=== PATIENT | male | born 1945 | race Caucasian/White ===

== ENCOUNTER 2017-02-10 13:52 | Inpatient (IN) | payer OTHER, MEDICARE ==
[2017-02-10] VITALS (8 sets, daily range): BP systolic 158–161; BP diastolic 86; PULSE 80–94; RESP 16–18; TEMP 97.9–98.2; O2SAT 92–93
[~2017-02-10 13:52] MED LIST: ADVAI100I PO; ATEN1TAB74 PO; ECASA PO; LEVO125T3 PO; PROT40TA PO; VENTAER INH
[2017-02-10] MEDS ORDERED: DILT-48 PO (16:34)
[2017-02-10] MEDS ORDERED: LEVO100T5 PO (16:46)
[2017-02-10] MEDS ORDERED: LISI10TA3 PO (16:46)
[2017-02-10] MEDS ORDERED: MONT10TA4 PO (16:46)
[2017-02-10] MEDS ORDERED: LEVA1.257 NEB (16:46)
[2017-02-10] MEDS ORDERED: [UNRECOGNIZED DRUG - CODE] (16:49)
[2017-02-10] MEDS ORDERED: CEFT1INJ IM (16:50)
[2017-02-10] MEDS ORDERED: ENOXAPARIN SODIUM 100 MG/ML SYRINGE SQ ONE (20:00)
[2017-02-10] MEDS: RESP: ALBUTEROL 2.5 MG/3 ML NEB (SCH) INH (20:00)
[2017-02-10] MEDS: MONTELUKAST SODIUM 10 MG TAB PO SCH (20:25)
[2017-02-10 20:32] LABS: AUTOMATED NEUTROPHIL # 13.1 TH/MM3 (1.8-7.7); HEMATOCRIT 43.3 % (39.0-51.0); HEMO FLAGS AUTO DIFF; LYMPH % 5.4 % (9.0-44.0); LYMPHOCYTE # 0.8 TH/MM3 (1.0-4.8); MEAN CELL VOLUME 103.9 FL (80.0-100.0); MEAN CORPUSCULAR HEMOGLOBIN 35.9 PG (27.0-34.0); MEAN CORPUSCULAR HGB CONC 34.6 % (32.0-36.0); MONO % 8.7 % (0.0-8.0); NEUT % 85.9 % (16.0-70.0); PLATELET COUNT 265 TH/MM3 (150-450); RED BLOOD COUNT 4.17 MIL/MM3 (4.50-5.90); RED CELL DISTRIBUTION WIDTH 15.7 % (11.6-17.2); WHITE BLOOD COUNT 15.3 TH/MM3 (4.0-11.0)
[2017-02-10 20:48] LABS: APTT (PATIENT) 25.4 SEC (24.3-30.1); PROTHROMBIN TIME - PATIENT 10.7 SEC (9.8-11.6)
[2017-02-10 20:53] LABS: BICARBONATE 24.3 MEQ/L (21.0-32.0); POTASSIUM 4.1 MEQ/L (3.5-5.1)
[2017-02-10 21:16] LABS: PLATELET ESTIMATE SMEAR NORMAL (NORMAL); PLATELET MORPHOLOGY NORMAL (NORMAL); SCAN/DIFF AUTO DIFF CONFIRMED
[2017-02-10] MEDS ORDERED: TEMAZEPAM 15 MG CAP PO PRN (22:00)
--- NOTE | 2017-02-10 22:36 | MB ---
cc: JAKUB ZEE M.D. DATE OF CONSULTATION: 02/10/2017 REASON FOR CONSULTATION: Atrial fibrillation, unable to control with medication. Multiple emergency room visits. HISTORY OF PRESENT ILLNESS: Mr. Woody is a 71 year-old gentleman with history of atrial fibrillation, previous ablation around six years ago, history of high blood pressure. The gentleman was admitted at [facility] due to atrial fibrillation with fast ventricular response. Multiple medications were given. Heart rate was very difficult to control. He came to the emergency room. He was transfer by Dr. Acosta for evaluation for ablation. The chart was reviewed. The patient was evaluated. I did have a very long conversation with the patient and his . ALLERGIES CODEINE. TERAZOSIN SOCIAL HISTORY: Denies smoking and drinking. FAMILY HISTORY Noncontributory to his current medical condition. MEDICATIONS Lisinopril 10 mg a day 1. Albuterol inhaler. 2. Cardizem CD 240 mg a day 3. Ceftriaxone 4. Levoxyl 100 mcg twice a day. REVIEW OF SYSTEMS The gentleman refers no chest pain, some tiredness and palpitations but no fever. PHYSICAL EXAMINATION: The patient is alert, fully oriented. VITAL SIGNS: Blood pressure 158/86, pulse 83, respiratory rate 18. LUNGS: Ventilated. There is some bilateral wheezing. CARDIOVASCULAR: S1-S2. Regular, no gallop. ABDOMEN: Soft, obese, no masses. EXTREMITIES: No edema. Electrocardiogram from the other hospital indicates sinus rhythm. Telemetry also showed sinus rhythm. ASSESSMENT AND RECOMMENDATION: Mr. Woody has atrial fibrillation. Apparently this is not the first ER visit. Heart rate is very difficult to control. We converted him to sinus rhythm on multiple occasions and back to atrial fibrillation with fast ventricular response. He is on Lovenox. He was transferred by Dr. Kinsey for ablation. I had a long conversation with the patient and his . Apparently there is confusion. The gentleman has some pause when breaking into sinus rhythm. Those are compensatory pauses. There is no need for pacemaker. The patient believes that he was going to have an ablation and a pacemaker. It was very difficult to explain to the patient if the arrhythmia is controlled, there is most likely no need for pacemaker. He has a loop recorder. He is going to be monitored through the loop recorder. Also the gentleman has some wheezing. There was a question augustine of pneumonia. I explained to him that he needs to be evaluated by pulmonary. If there is possible pneumonia, then ablation will not be performed. The gentleman was not happy about that news. I discussed again the case over the phone with Dr. Kinsey. At this point pulmonary consult. If the patient is clear, ablation will be performed tomorrow. If not, the gentleman has to wait until he is cleared by pulmonary, then the case will be scheduled. Jakub Zee MD /MADYSON /7:17 PM /10:11 PM
[2017-02-11] VITALS (24 sets, daily range): BP systolic 130–168; BP diastolic 68–96; PULSE 66–89; RESP 16–20; TEMP 97.5–98.2; O2SAT 93–96
[2017-02-11] MEDS: LEVOTHYROXINE SODIUM 100 MCG TAB PO SCH (05:39)
[2017-02-11] MEDS: RESP: ALBUTEROL 2.5 MG/3 ML NEB (SCH) INH ×4 (08:00→19:32)
[2017-02-11] MEDS: DILTIAZEM-CD 240 MG CAP ER PO SCH (09:07)
[2017-02-11] MEDS: LISINOPRIL 10 MG TAB PO SCH (09:07)
--- NOTE | 2017-02-11 09:12 | MB ---
cc: SAMANTHA SINGH M.D. DATE OF CONSULTATION 02/11/2017 REASON FOR CONSULTATION COPD, abnormal chest x-ray. HISTORY OF PRESENT ILLNESS Mr. Woody is a 71-year-old male who has known history of COPD, had history of atrial fibrillation controlled over the years he as well has history of lung cancer status post right lower lobectomy in the past. He uses albuterol on as-needed basis at home. Admitted with V-fib and RVR to [facility] in [place], transferred here for further evaluation. Presently in sinus rhythm. He does have exertional dyspnea after walking a few steps. He denies history of fevers, chills, hemoptysis, TB or previous industrial exposure. PAST MEDICAL HISTORY 1. Atrial fibrillation. 2. Hypertension. 3. COPD. 4. Status post right lower lobe lobectomy and ablation for atrial fibrillation. 5. Hypothyroidism. PRESENT MEDICATIONS 1. Cardizem . 2. Levoxyl. 3. Lisinopril. 4. Ceftriaxone for possible underlying pneumonia. FAMILY HISTORY Noncontributory. REVIEW OF SYSTEMS A 12-point review of systems as per HPI and Past History, otherwise negative. PHYSICAL EXAMINATION GENERAL: Patient is alert, appears in no distress at present. VITAL SIGNS: Temperature 98, pulse 80, respirations 18, blood pressure 148/82. HEENT: Exam unremarkable. Eyes without icterus. NECK: Without adenopathy or thyroid enlargement. Central trachea. CHEST: Without dullness to percussion. A few scattered rhonchi on auscultation. CARDIAC EXAM: PMI distant. S1, S2 audible. No murmur, no rub. ABDOMEN: Lax. Bowel sounds audible. EXTREMITIES: No clubbing, cyanosis or edema. SKIN: Normal. LYMPHATICS: No lymphadenopathy. LABORATORY DATA White count 15,000, hemoglobin 15, hematocrit 43. Sodium 138, potassium 4.1, BUN 25, creatinine 1.1. IMPRESSION 1. COPD with exertional dyspnea. 2. Atrial fibrillation. 3. Hypertension. PLAN The patient has significant exertional dyspnea. I do not have his recent chest x-ray. The chest x-ray from 2013 was with evidence of previous surgery; no acute infiltrates identified. We will obtain his present x-rays down in [facility]. Meanwhile obtain a follow-up chest x-ray at present as well as pulmonary function and baseline arterial blood gas. Once reviewed, further evaluation will be undertaken if needed and future plans for therapy is being evaluated for his atrial fibrillation by Dr. Bustamante at present. I do thank you for asking me to partake in Mr. Woody's care. Sincerely, Samantha Singh MD WWW/JOSE MIGUEL /8:21 AM /8:54 AM
--- NOTE | 2017-02-11 10:49 | HHI.PR ---
Subjective Remarks Feeling . Am I going to have a pacer? Objective Vital Signs Date Time Temp Pulse Resp B/P Pulse Ox O2 Delivery O2 Flow Rate FiO2 02/11/17 07:45 97.5 78 16 162/93 95 02/11/17 07:45 88 02/11/17 05:46 98.1 89 16 168/82 94 02/11/17 03:00 71 02/11/17 02:00 70 02/11/17 01:00 66 02/11/17 00:23 98.1 79 16 140/82 95 02/11/17 00:00 72 02/10/17 23:00 80 02/10/17 22:00 92 02/10/17 21:00 82 02/10/17 20:38 92 21 02/10/17 20:35 97.9 91 16 161/86 93 02/10/17 20:00 94 02/10/17 19:00 88 02/10/17 15:00 98.2 83 18 158/86 93 I/O 02/10/17 02/10/17 02/10/17 02/11/17 02/11/17 02/11/17 07:00 15:00 23:00 07:00 15:00 23:00 Intake Total 480 ml 240 ml Output Total 60 ml Balance 480 ml 180 ml Intake Oral 480 ml 240 ml Output Urine Total 60 ml # Voids 2 2 # Bowel Movements 1 Result Diagram: 02/10/17200802/10/172008 Imaging alert, fully oriented Lungs: ventilated Heart: S1, S2 regular Abdomen: soft, no mass Ext: No edema Current Medications Medications (Trade) Dose Ordered Sig/Nargis Route Start Time Stop Time Status Last Admin (Cardizem Cd) 240 mg DAILY PO 02/11/17 09:00 02/11/17 09:07 (Singulair) 10 mg HS PO 02/10/17 21:00 02/10/17 20:25 (Prinivil) 10 mg DAILY PO 02/11/17 09:00 02/11/17 09:07 (Synthroid) 100 mcg DAILY@07 PO 02/11/17 07:00 02/11/17 05:39 (Rocephin Inj) 1,000 mg Q24H IM 02/11/17 17:00 (Restoril) 15 mg HS PRN PO 02/10/17 22:00 02/15/17 21:59 Assessment and Plan Problem List: (1) Atrial fibrillation Status: Acute Plan: In sinus rhythm. HR control I had a long conversation with the patient and his this morning again. I did explain to them I need pulmonary clearance before schedule the ablation. The gentleman told me his MD at [facility] told him he needs a pacemaker. If he is going to have the ablation, he has to have the pacer also. We had that conversation yesterday. I did explain yto him there is no indication for pacing. 2-3 sec pauses when converted into sinus rhythm is compensatory and the node is resetting. I draw a picture to explain that to him. Patient not happy about my explanation and wants a pacer. HR is control. There is no emergency. I advise him to look for a second opinion. Dr Acosta will decide if he wants to insert a pacer for him. I do not feel comfortable implanting one. Patient prefers to see Dr Acosta for the pacer and will contact me if necessary Ok to after pulmonary evaluation. I will be available on a PRN basis (2) Bradycardia Status: Acute Plan: No daisy recorded (3) Pneumonia Status: Acute Plan: On IV antibiotics. Will be evaluated by pulmonary Radha Bustamante MD Feb 11, 2017 10:49
--- NOTE | 2017-02-11 13:39 | RADRPT ---
EXAM DATE/TIME: 02/11/2017 13:06 [place] COMPARISON: No previous studies available for comparison. INDICATIONS : Pneumonia. MEDICAL HISTORY : Hypercholesterolemia. Hypothyroidism. Gastroesophageal reflux disease. Lung cancer. SURGICAL HISTORY : Cholecystectomy. Right lower lobectomy. ENCOUNTER: Initial ACUITY: 2 days PAIN SCORE: 2/10 LOCATION: Bilateral chest FINDINGS: PA and lateral views of the chest demonstrate the lungs to be symmetrically aerated without evidence of mass, infiltrate or effusion. The cardiomediastinal contours are unremarkable. The right hemidiap hragm is slightly elevated. Osseous structures are intact. CONCLUSION: Normal examination. Surgical clips overlie the right hilum. Vern Stuart MD on February 11, 2017 at 13:36 Board Certified Radiologist. This report was verified electronically.
[2017-02-11 14:44] LABS: BLOOD GAS BASE EXCESS 0.6 mmol/L (-2-2); BLOOD GAS CARBOXYHEMOGLOBIN 1.4 % (0-4); BLOOD GAS HCO3 24 mmol/L (22-26); BLOOD GAS METHEMOGLOBIN 0.9 % (0-2); BLOOD GAS O2 HGB SATURATION 92 % (90-100); BLOOD GAS OXYGEN CONTENT 20.2 Vol % (12.0-20.0); BLOOD GAS PCO2 35 mmHg (38-42); BLOOD GAS PO2 70 mmHg (61-120); BLOOD GAS TOTAL HGB 15.5 G/DL (12.0-16.0); TEMP CORR TO 98.6
[2017-02-11 14:45] LABS: CRITICAL VALUE NO; DRAW SITE LT RADIAL; FIO2 21 %; NUMBER OF ARTERIAL PUNCTURES 1; OXYGEN DEVICE ROOM AIR; STAT NO; ULNAR PULSE Y
--- NOTE | 2017-02-11 15:46 | PD.CONS ---
HPI Service [facility] Hospitalists Consult Requested By Robby Reason for Consult afib, medical co management, pneumonia Primary Care Physician Kerri Hernandez MD Diagnoses: History of Present Illness This is a 71-year-old male with history of hypothyroidism, hypertension, atrial fibrillation and COPD who initially presented to [facility] after having dizziness and passing out while doing something front of the computer. Patient was found by his staring in space and then after a few seconds, went back to consciousness. No upward rolling of eyeballs, incontinence or rhythmic movement of extremities. After that incident, patient started throwing up and had a big bowel movement. Patient denies any chest pain or palpitations. Patient was then brought to [facility], he was allegedly found in atrial fibrillation with RVR , evaluated by Dr. Kinsey and was then recommended to go to [facility] for possible ablation versus pacemaker placement. He was also diagnosed to have pneumonia and was started on azithromycin and ceftriaxone. Of note, he has been complaining of Cough productive with orange, yellowish sputum for about one week now associated with fever of 102.7 and mild shortness of breath and dyspnea on exertion. Of note, patient had a loop recorder placed 1 year ago. Presently, patient is in room air, shortness of breath is better. Review of Systems ROS Limitations: Other (All other pertinent systems were reviewed and are negative.) Past Family Social History Allergies: Coded Allergies: Codeine (Verified Allergy, Severe, Nausea/Vomiting, 08/15/15) Egg Allergy (Verified Allergy, Severe, 08/15/15) Terazosin (Unverified Allergy, Severe, A-FIB, 07/27/14) Past Medical History Hypothyroidism Hypertension GERD Atrial fibrillation COPD History of AVMs Lung cancer Past Surgical History Brain surgery for AVM Right lower lobe lobectomy Cholecystectomy Reported Medications Ceftriaxone Inj (Ceftriaxone Sodium) 1 Gm Inj 1 Gm IM Q24H Azithromycin Inj (Azithromycin) 500 Mg Inj Levalbuterol Neb (Levalbuterol HCl) 1.25 Mg/3 Ml Neb 1.25 Mg NEB QID Levothyroxine (Levothyroxine Sodium) 100 Mcg Tab 100 Mcg PO DAILY Lisinopril 10 Mg Tab 10 Mg PO DAILY Montelukast (Montelukast Sodium) 10 Mg Tab 10 Mg PO HS Diltiazem ER 24 HR 240 Mg Caper 240 Mg PO DAILY Family History Noncontributory Social History Nonsmoker, denies alcohol use. Physical Exam Vital Signs Vital Signs Date Time Temp Pulse Resp B/P Pulse Ox O2 Delivery O2 Flow Rate FiO2 02/11/17 12:00 98.2 81 18 150/81 96 02/11/17 11:00 80 02/11/17 07:45 97.5 78 16 162/93 95 02/11/17 07:45 88 02/11/17 05:46 98.1 89 16 168/82 94 02/11/17 03:00 71 02/11/17 02:00 70 02/11/17 01:00 66 02/11/17 00:23 98.1 79 16 140/82 95 02/11/17 00:00 72 02/10/17 23:00 80 02/10/17 22:00 92 02/10/17 21:00 82 02/10/17 20:38 92 21 02/10/17 20:35 97.9 91 16 161/86 93 02/10/17 20:00 94 02/10/17 19:00 88 Physical Exam Not in distress, well-nourished, looks stated age PERRL, pink conjunctiva without injection, anicteric Nose without bleeding, airway patent, oropharynx clear Supple neck, no masses or thyromegaly, trachea midline Normal rate and regular rhythm, no murmurs gallops or rubs appreciated. Occasional rhonchi on the left upper lobe, no wheezing or crackles. Normal bowel sounds, soft, non-tender, nondistended, no guarding. Extremities without clubbing, cyanosis, or edema. No rash of generalized distribution. Skin is warm and dry. AAO x3, no cranial nerve deficits, moves all 4 extremities, no focal neurologic deficits Normal mood, appropriate affect Laboratory Laboratory Tests Test 02/10/17 02/11/17 20:09 14:40 White Blood Count 15.3 Red Blood Count 4.17 Hemoglobin 15.0 Hematocrit 43.3 Mean Corpuscular Volume 103.9 Mean Corpuscular Hemoglobin 35.9 Mean Corpuscular Hemoglobin 34.6 Concent Red Cell Distribution Width 15.7 Platelet Count 265 Mean Platelet Volume 8.9 Neutrophils (%) (Auto) 85.9 Lymphocytes (%) (Auto) 5.4 Monocytes (%) (Auto) 8.7 Eosinophils (%) (Auto) 0.0 Basophils (%) (Auto) 0.0 Neutrophils # (Auto) 13.1 Lymphocytes # (Auto) 0.8 Monocytes # (Auto) 1.3 Eosinophils # (Auto) 0.0 Basophils # (Auto) 0.0 CBC Comment AUTO DIFF Differential Comment AUTO DIFF CONFIRMED Platelet Estimate NORMAL Platelet Morphology Comment NORMAL Prothrombin Time 10.7 Prothromb Time International 1.0 Ratio Activated Partial 25.4 Thromboplast Time Sodium Level 138 Potassium Level 4.1 Chloride Level 105 Carbon Dioxide Level 24.3 Anion Gap 9 Blood Urea Nitrogen 25 Creatinine 1.13 Estimat Glomerular Filtration 64 Rate Random Glucose 122 Calcium Level 8.8 Blood Gas Puncture Site LT RADIAL Blood Gas Patient Temperature 98.6 Blood Gas HCO3 24 Blood Gas Base Excess 0.6 Blood Gas Oxygen Saturation 92 Arterial Blood pH 7.45 Arterial Blood Partial 35 Pressure CO2 Arterial Blood Partial 70 Pressure O2 Arterial Blood Oxygen Content 20.2 Arterial Blood 1.4 Carboxyhemoglobin Arterial Blood Methemoglobin 0.9 Blood Gas Hemoglobin 15.5 Oxygen Delivery Device ROOM AIR Blood Gas Inspired Oxygen 21 Result Diagram: 02/10/17200802/10/172008 Assessment and Plan Assessment and Plan This is a 71-year-old male with history of hypothyroidism, hypertension, atrial fibrillation and COPD initially presenting to [facility] with dizziness and lightheadedness, found to be in atrial fibrillation with RVR and pneumonia. Atrial fibrillation with RVR-on Cardizem, further treatment per primary. Would check TSH. Pneumonia-being treated with ceftriaxone and azithromycin, pulmonary consulted, continue ceftriaxone for now. DuoNeb's as needed. COPD-not in exacerbation, continue duo nebs Hypothyroidism-recheck TSH, continue levothyroxine Hypertension-continue lisinopril and Cardizem. Leukocytosis-recheck tomorrow DVT prophylaxis: Lovenox Code Status Full code Discussed Condition With Perez Mathews MD Feb 11, 2017 15:46 Perez Mathews MD Feb 11, 2017 15:46
[2017-02-11] MEDS ORDERED: RESP: ALBUTEROL 2.5 MG/IPRATROPIUM 0.5 MG NEB (PRN) NEB (16:00)
[2017-02-11] MEDS ORDERED: ENOXAPARIN SODIUM 40 MG/0.4 ML SYRINGE SQ SCH (20:00)
[2017-02-11] MEDS ORDERED: cefTRIAXone 1,000 MG/NS 100 ML IV SCH ×2 (22:00)
[2017-02-11] MEDS ORDERED: ceFAZolin 1,000 MG/NS 100 ML IV SCH ×2 (22:00)
[2017-02-11] MEDS: MONTELUKAST SODIUM 10 MG TAB PO SCH (22:03)
[2017-02-12] VITALS (9 sets, daily range): BP systolic 161–169; BP diastolic 83–89; PULSE 66–87; RESP 16; TEMP 98.1–98.4; O2SAT 94–96
[2017-02-12 06:29] LABS: HEMATOCRIT 38.9 % (39.0-51.0); MEAN CELL VOLUME 103.7 FL (80.0-100.0); MEAN CORPUSCULAR HEMOGLOBIN 35.9 PG (27.0-34.0); MEAN CORPUSCULAR HGB CONC 34.6 % (32.0-36.0); PLATELET COUNT 170 TH/MM3 (150-450); RED BLOOD COUNT 3.75 MIL/MM3 (4.50-5.90); RED CELL DISTRIBUTION WIDTH 15.1 % (11.6-17.2); REVIEW FLAG FINAL; WHITE BLOOD COUNT 5.8 TH/MM3 (4.0-11.0)
[2017-02-12] MEDS: LEVOTHYROXINE SODIUM 100 MCG TAB PO SCH (07:00)
[2017-02-12] MEDS: LISINOPRIL 10 MG TAB PO SCH (08:29)
[2017-02-12] MEDS: DILTIAZEM-CD 240 MG CAP ER PO SCH (08:29)
[2017-02-12] MEDS ORDERED: CEFT500T3 PO (10:04)
--- NOTE | 2017-02-12 10:06 | HHI.PR ---
Subjective Remarks Follow-up for pneumonia, A. fib Shortness of breath resolved, in sinus rhythm, no chest pain, no cough. Afebrile. Leukocytosis resolved. Objective Vitals Vital Signs Date Time Temp Pulse Resp B/P Pulse Ox O2 Delivery O2 Flow Rate FiO2 02/12/17 08:30 98.4 84 16 169/89 96 02/12/17 06:00 73 02/12/17 05:00 73 02/12/17 04:16 98.1 87 16 161/83 94 02/12/17 04:00 72 02/12/17 03:00 66 02/12/17 02:00 68 02/12/17 01:00 68 02/12/17 00:00 82 02/11/17 23:23 97.7 74 16 130/68 95 02/11/17 23:00 72 02/11/17 22:00 78 02/11/17 21:00 97.8 78 16 154/90 93 02/11/17 21:00 76 02/11/17 20:00 80 02/11/17 19:00 74 02/11/17 18:00 76 02/11/17 17:00 74 02/11/17 16:00 97.9 78 20 162/96 95 02/11/17 16:00 76 02/11/17 15:00 73 02/11/17 14:00 80 02/11/17 13:00 74 02/11/17 12:00 98.2 81 18 150/81 96 02/11/17 12:00 80 02/11/17 11:00 80 I/O 02/11/17 02/11/17 02/11/17 02/12/17 02/12/17 02/12/17 07:00 15:00 23:00 07:00 15:00 23:00 Intake Total 240 ml 720 ml 340 ml Output Total 60 ml 200 ml 320 ml Balance 180 ml 520 ml 20 ml Intake Oral 240 ml 720 ml 240 ml IV Total 100 ml Output Urine Total 60 ml 200 ml 320 ml Stool Total 0 ml # Voids 2 4 # Bowel Movements 1 0 Result Diagram: 02/12/17 0528 02/10/172008 Objective Remarks PERRL, pink conjunctiva without injection, anicteric Nose without bleeding, airway patent, oropharynx clear Supple neck, no masses or thyromegaly, trachea midline Normal rate and regular rhythm, no murmurs gallops or rubs appreciated. Clear breath sounds. Normal bowel sounds, soft, non-tender, nondistended, no guarding. Extremities without clubbing, cyanosis, or edema. No rash of generalized distribution. Skin is warm and dry. AAO x3, no cranial nerve deficits, moves all 4 extremities, no focal neurologic deficits Normal mood, appropriate affect A/P Assessment and Plan This is a 71-year-old male with history of hypothyroidism, hypertension, atrial fibrillation and COPD initially presenting to [facility] with dizziness and lightheadedness, found to be in atrial fibrillation with RVR and pneumonia. Atrial fibrillation with RVR-resolved, in sinus rhythm on Cardizem, further treatment per primary. Pneumonia-being treated with ceftriaxone and azithromycin, pulmonary consulted, repeat chest x-ray negative, no leukocytosis, will switch to Ceftin and complete 1 week of treatment. Further management per pulmonary. DuoNeb's as needed. COPD-not in exacerbation, continue duo nebs Hypothyroidism- continue levothyroxine Hypertension-continue lisinopril and Cardizem. Leukocytosis -repeated today, resolved DVT prophylaxis: Lovenox Medically cleared for discharge, discussed with FABRICE. Perez Mathews MD Feb 12, 2017 10:06
--- NOTE | 2017-02-12 12:20 | HHI.PR ---
Subjective Remarks ALERT NO SOB CXRAY CLEAR ABG ADEQUATE Objective Vital Signs Date Time Temp Pulse Resp B/P Pulse Ox O2 Delivery O2 Flow Rate FiO2 02/12/17 08:30 98.4 84 16 169/89 96 02/12/17 06:00 73 02/12/17 05:00 73 02/12/17 04:16 98.1 87 16 161/83 94 02/12/17 04:00 72 02/12/17 03:00 66 02/12/17 02:00 68 02/12/17 01:00 68 02/12/17 00:00 82 02/11/17 23:23 97.7 74 16 130/68 95 02/11/17 23:00 72 02/11/17 22:00 78 02/11/17 21:00 97.8 78 16 154/90 93 02/11/17 21:00 76 02/11/17 20:00 80 02/11/17 19:00 74 02/11/17 18:00 76 02/11/17 17:00 74 02/11/17 16:00 97.9 78 20 162/96 95 02/11/17 16:00 76 02/11/17 15:00 73 02/11/17 14:00 80 02/11/17 13:00 74 I/O 02/11/17 02/11/17 02/11/17 02/12/17 02/12/17 02/12/17 07:00 15:00 23:00 07:00 15:00 23:00 Intake Total 240 ml 720 ml 340 ml Output Total 60 ml 200 ml 320 ml Balance 180 ml 520 ml 20 ml Intake Oral 240 ml 720 ml 240 ml IV Total 100 ml Output Urine Total 60 ml 200 ml 320 ml Stool Total 0 ml # Voids 2 4 # Bowel Movements 1 0 Result Diagram: 02/12/17 0528 02/10/172008 Objective Remarks GENERAL: SKIN: Warm and dry. HEAD: Atraumatic. Normocephalic. EYES: Pupils equal and round. No scleral icterus. No injection or drainage. ENT: No nasal bleeding or discharge. Mucous membranes pink and moist. NECK: Trachea midline. No JVD. CARDIOVASCULAR: Regular rate and rhythm. RESPIRATORY: No accessory muscle use. Clear to auscultation. Breath sounds equal bilaterally. GASTROINTESTINAL: Abdomen soft, non-tender, nondistended. Hepatic and splenic margins not palpable. MUSCULOSKELETAL: Extremities without clubbing, cyanosis, or edema. No obvious deformities. NEUROLOGICAL: Awake and alert. No obvious cranial nerve deficits. Motor grossly within normal limits. Five out of 5 muscle strength in the arms and legs. Normal speech. PSYCHIATRIC: Appropriate mood and affect; insight and judgment normal. Assessment and Plan Assessment and Plan COPD STABLE PLAN PRN ALBUTEROL OFFICE 2 WEEKS Samantha Singh MD Feb 12, 2017 12:20
== END 2017-02-12 12:48 | disposition home or self-care (01) | DRG 308 ==
LOC: HCIS 13:52
PROVIDERS: ADMIT Internal Medicine Interventional Cardiology; ATTEND Internal Medicine Interventional Cardiology
DX: I48.91 Unspecified atrial fibrillation (principal); J18.9 Pneumonia, unspecified organism; J44.0 Chronic obstructive pulmonary disease with (acute) lower respiratory infection; Z90.2 Acquired absence of lung [part of]; I10 Essential (primary) hypertension; E03.9 Hypothyroidism, unspecified; K21.9 Gastro-esophageal reflux disease without esophagitis; Z85.118 Personal history of other malignant neoplasm of bronchus and lung
CPT/HCPCS: 36600; 71020; 76937; 80048; 82805; 85025; 85027; 85610; 85730; J0696; J1650

== ENCOUNTER 2017-02-22 13:26 | Day surgery (SDC) | payer OTHER ==
[~2017-02-22] VITALS: Ht 177.8 cm; Wt 85.0 kg
[2017-02-22] VITALS (7 sets, daily range): BP systolic 122–158; BP diastolic 68–81; PULSE 59–83; RESP 16–18; TEMP 98–98.8; O2SAT 99–100
[~2017-02-22 13:26] MED LIST changes: -ADVAI100I PO; -ATEN1TAB74 PO; +CEFT500T3 PO; +DILT-48 PO; -ECASA PO; +LEVA1.257 NEB; +LEVO100T5 PO; -LEVO125T3 PO; +LISI10TA3 PO; +MONT10TA4 PO; -PROT40TA PO; -VENTAER INH
[2017-02-22] MEDS ORDERED: INSULIN HUMAN REGULAR 1,000 UNITS/10 ML VIAL SQ PRN (14:00)
[2017-02-22] MEDS ORDERED: METOPROLOL TARTRATE 25 MG TAB PO PRN (14:00)
[2017-02-22] MEDS ORDERED: LORazepam 1 MG TAB SL SCH (14:00)
[2017-02-22] MEDS ORDERED: SODIUM CHLORID 0.9% 500 ML INJ 500 ML IV SCH (14:00)
[2017-02-22] MEDS ORDERED: SODIUM CHLORID 0.9% 500 ML IV PRN (14:00)
[2017-02-22] MEDS ORDERED: CHLORHEXIDINE GLUCONATE 2 % 1 PACK (2 CLOTHS) TOPICAL PRN (14:00)
[2017-02-22] MEDS ORDERED: POVIDONE IODINE 5% (ANTISEPSIS KIT) 4 APPLICATIONS EACH NARE PRN (14:00)
[2017-02-22] MEDS ORDERED: LACTATED RINGER'S 1000 ML IV PRN (14:00)
[2017-02-22] MEDS ORDERED: METO100T9 PO (14:25)
[2017-02-22] MEDS ORDERED: FLUT50SP EACH NARE (14:25)
[2017-02-22] MEDS ORDERED: TAZT240C PO (14:25)
[2017-02-22] MEDS ORDERED: VENTAER INH (14:25)
[2017-02-22] MEDS ORDERED: GAVICHW CHEW (14:25)
[2017-02-22] MEDS ORDERED: APIX5TAB PO (14:25)
[2017-02-22 14:54] LABS: AUTOMATED NEUTROPHIL # 5.3 TH/MM3 (1.8-7.7); BASOPHIL % 0.3 % (0.0-2.0); EOSINOPHIL # 0.1 TH/MM3 (0-0.4); EOSINOPHIL % 1.5 % (0.0-4.0); HEMATOCRIT 44.7 % (39.0-51.0); HEMO FLAGS DIFF FINAL; LYMPHOCYTE # 1.9 TH/MM3 (1.0-4.8); MEAN CELL VOLUME 103.6 FL (80.0-100.0); MEAN CORPUSCULAR HEMOGLOBIN 36.3 PG (27.0-34.0); MONO % 11.7 % (0.0-8.0); NEUT % 63.5 % (16.0-70.0); PLATELET COUNT 270 TH/MM3 (150-450); RED BLOOD COUNT 4.31 MIL/MM3 (4.50-5.90); RED CELL DISTRIBUTION WIDTH 14.1 % (11.6-17.2); WHITE BLOOD COUNT 8.3 TH/MM3 (4.0-11.0)
[2017-02-22 15:18] LABS: APTT (PATIENT) 25.9 SEC (24.3-30.1); INTERNATIONAL NORMALIZED RATIO 0.9 RATIO; PROTHROMBIN TIME - PATIENT 10.4 SEC (9.8-11.6)
[2017-02-22 15:22] LABS: BICARBONATE 28.8 MEQ/L (21.0-32.0); POTASSIUM 3.8 MEQ/L (3.5-5.1)
[2017-02-22] MEDS ORDERED: PROPOFOL 200 MG/20 ML AMP IV ONE (16:57)
[2017-02-22] MEDS ORDERED: PROTAMINE SULFATE 50 MG/5 ML VIAL ONE (17:04)
[2017-02-22] MEDS ORDERED: HEPARIN-D5W INJ 250 ML ONE (17:04)
[2017-02-22] MEDS ORDERED: ISOPROTERENOL HCL 1 MG/5 ML AMP ONE (17:04)
[2017-02-22] MEDS ORDERED: HEPARIN SODIUM - IV 10,000 UNITS/10 ML VIAL ONE (17:05)
[2017-02-22] MEDS ORDERED: fentaNYL CITRATE 250 MCG/5 ML AMP ONE (17:05)
[2017-02-22] MEDS ORDERED: LEVOFLOXACIN 500 MG PREMIX INJ 100 ML IV ONE (17:33)
[2017-02-22] MEDS ORDERED: FUROSEMIDE 40 MG/4 ML VIAL ONE (19:19)
[2017-02-22] MEDS ORDERED: oxyCODONE/ACETAMINOPHEN 5 MG/325 MG TAB PO PRN ×2 (19:30)
[2017-02-22] MEDS ORDERED: ATROPINE SULFATE 1 MG/ML VIAL IV PRN (19:30)
[2017-02-22] MEDS ORDERED: ONDANSETRON HCL 4 MG/2 ML VIAL IV PRN (19:30)
[2017-02-22] MEDS ORDERED: LORazepam 2 MG/ML VIAL IV PRN (19:30)
[2017-02-22] MEDS ORDERED: METOCLOPRAMIDE HCL 10 MG/2 ML VIAL IV PRN (19:30)
[2017-02-22] MEDS ORDERED: LIDOCAINE HCL 1% 50 ML VIAL INFIL PRN (19:30)
[2017-02-22] MEDS ORDERED: BACITRACIN OINT 0.9 GM PKT TOP ONE (20:00)
[2017-02-22] MEDS ORDERED: KETOROLAC TROMETHAMINE 10 MG TAB PO PRN (20:00)
[2017-02-22] MEDS ORDERED: SODIUM CHLOR 0.9% 250 ML INJ 250 ML IV PRN (20:00)
[2017-02-22] MEDS: APIXABAN 5 MG TABLET PO SCH (21:00)
[2017-02-22] MEDS ORDERED: MONTELUKAST SODIUM 10 MG TAB PO SCH (21:00)
[2017-02-23] VITALS (10 sets, daily range): BP systolic 110–140; BP diastolic 72–78; PULSE 75–96; RESP 16; TEMP 97.8–98; O2SAT 97–99
[2017-02-23] MEDS ORDERED: LEVOTHYROXINE SODIUM 100 MCG TAB PO SCH (06:00)
[2017-02-23 06:57] LABS: INTERNATIONAL NORMALIZED RATIO 1.1 RATIO; PROTHROMBIN TIME - PATIENT 11.7 SEC (9.8-11.6)
[2017-02-23] MEDS: APIXABAN 5 MG TABLET PO SCH (08:17)
--- NOTE | 2017-02-23 08:32 | EKG ---
Date Performed: 02/23/2017 Time Performed: 05:25:42 PTAGE: 71 years EKG: Sinus rhythm Right bundle branch block Abnormal ECG PREVIOUS TRACING : 02/22/2017 19.50 No significant change from previous tracing noted. DOCTOR: Hiren Dubon Interpretating Date/Time 02/23/2017 08:31:25
--- NOTE | 2017-02-23 08:52 | EKG ---
Date Performed: 02/22/2017 Time Performed: 19:50:13 PTAGE: 71 years EKG: Sinus rhythm RIGHT BUNDLE BRANCH BLOCK ABNORMAL ECG PREVIOUS TRACING : 02/22/2017 14.30 Compared to previous tracing, right bundle branch block pat tern is now evident. DOCTOR: Hiren Dubon Interpretating Date/Time 02/23/2017 08:50:32
[2017-02-23] MEDS ORDERED: METOPROLOL SUCCINATE 50 MG EXTENDED RELEASE TAB PO SCH (09:00)
--- NOTE | 2017-02-23 09:02 | EKG ---
Date Performed: 02/22/2017 Time Performed: 14:30:34 PTAGE: 71 years EKG: Sinus rhythm . Normal ECG PREVIOUS TRACING : 07/27/2014 17.17 Compared to previous tracing, nonspecific T wave changes moise ve resolved. DOCTOR: Hiren Dubon Interpretating Date/Time 02/23/2017 09:00:41
--- NOTE | 2017-02-23 10:40 | HHI.PR ---
Subjective Remarks Feeling better Objective Vital Signs Date Time Temp Pulse Resp B/P Pulse Ox O2 Delivery O2 Flow Rate FiO2 02/23/17 04:30 82 02/23/17 03:31 98.0 82 16 140/78 99 02/23/17 03:00 75 02/23/17 02:00 75 02/23/17 01:03 79 02/23/17 00:00 79 02/22/17 23:30 98.0 81 16 122/68 100 02/22/17 23:00 83 02/22/17 22:00 83 02/22/17 21:40 83 02/22/17 21:00 97.5 80 14 116/68 98 Nasal Cannula 3 02/22/17 20:30 85 14 126/69 97 Nasal Cannula 3 02/22/17 20:15 77 15 127/71 98 Nasal Cannula 3 02/22/17 20:00 77 14 117/74 98 Nasal Cannula 3 02/22/17 19:45 82 16 129/80 97 Nasal Cannula 3 02/22/17 19:36 97.9 86 17 143/70 99 Nasal Cannula 3 02/22/17 19:30 02/22/17 18:57 02/22/17 18:57 02/22/17 14:16 98.2 77 16 155/78 100 I/O 02/22/17 02/22/17 02/22/17 02/23/17 02/23/17 02/23/17 07:00 15:00 23:00 07:00 15:00 23:00 Intake Total 1250 ml 120 ml Output Total 1500 ml 1050 ml Balance -250 ml -930 ml Intake Oral 100 ml 120 ml Other 1150 ml Output Urine Total 1500 ml 1050 ml # Voids 0 Result Diagram: 02/22/17 1404 02/22/17 1404 Imaging Alert, fully oriented Lungs: ventilated Heart: S1, S2 regular, no gallop Abdomen: soft, no mass Ext: no edema Current Medications Medications (Trade) Dose Ordered Sig/Nargis Route Start Time Stop Time Status Last Admin Sodium Chloride 500 ml @ 30 mls/hr [id number] IV 02/22/17 14:00 Lactated Ringer's 1,000 ml @ 30 mls/hr Q24H PRN IV 02/22/17 14:00 02/25/17 13:59 (NS 500 ml Inj) 500 ml @ 30 mls/hr [id number] PRN IV 02/22/17 14:00 02/25/17 13:59 (Ativan Inj) 0.5 mg UNSCH PRN IV 02/22/17 19:30 02/23/17 19:29 Atropine Sulfate 0.5 mg 0.5 mg UNSCH PRN IV 02/22/17 19:30 (NS 250 ml Inj) 250 ml @ 500 mls/hr ONCE PRN IV 02/22/17 20:00 02/23/17 19:59 (Reglan Inj) 10 mg Q4H PRN IV 02/22/17 19:30 (Zofran Inj) 4 mg Q4H PRN IV 02/22/17 19:30 (Xylocaine 1% Inj (50 ml)) 10 ml UNSCH PRN INFIL 02/22/17 19:30 02/23/17 19:29 (Toradol) 10 mg Q6H PRN PO 02/22/17 20:00 (Eliquis) 5 mg BID PO 02/22/17 21:00 02/23/17 08:17 (Synthroid) 100 mcg DAILY@06 PO 02/23/17 06:00 02/23/17 05:27 (Singulair) 10 mg HS PO 02/22/17 21:00 02/22/17 21:00 (Toprol Xl) 100 mg DAILY PO 02/23/17 09:00 02/23/17 08:17 Assessment and Plan Problem List: (1) Atrial fibrillation Status: Acute Plan: Patient in sinus rhythm Stable No chest pain Will be DH Follow up as scheduled (2) Bradycardia Status: Acute Plan: In sinus Radha Bustamante MD Feb 23, 2017 10:40
[2017-02-23] MEDS ORDERED: CARD240C6 PO (10:44)
--- NOTE | 2017-03-06 17:34 | ETE ---
Study Study Date:02/22/2017 STUDY CONCLUSIONS SUMMARY - Left ventricle: The cavity size was normal. Wall thickness was normal. Systolic function was normal. The estimated ejection fraction was in the range of 50% to 55%. Wall motion was normal; there were no regional wall motion abnormalities. - Aortic valve: No evidence of vegetation. - Mitral valve: No evidence of vegetation. - Left atrium: No evidence of thrombus in the atrial cavity or appendage. No evidence of thrombus in the atrial cavity or appendage. - Right atrium: No evidence of thrombus in the atrial cavity or appendage. - Atrial septum: No defect or patent foramen ovale was identified. Echo contrast study showed no bdxcd-[id number]-[id number] atrial level shunt, at baseline or with provocation. - Tricuspid valve: No evidence of vegetation. - Pulmonic valve: No evidence of vegetation. If LV function is below 40, please consider prescribing an ACEI or ARB or document rationale for non-use. PROCEDURE DATA Consent: The risks, benefits, and alternatives to the procedure were explained to the patient and informed consent was obtained. Procedure: Initial setup. The patient was brought to the laboratory in the fasting state. Intravenous access was obtained. Surface ECG leads and pulse oximetric signals were monitored. Sedation. Conscious sedation was administered by cardiology staff. Transesophageal echocardiography. Topical anesthesia was obtained using viscous lidocaine. A transesophageal probe was inserted by the attending needle felt making machine operator. Image quality was good. Study completion: All IVs inserted during the procedure were removed. The patient tolerated the procedure well. There were no complications. Transesophageal echocardiography. 2D, complete spectral Doppler, and color Doppler. CARDIAC ANATOMY LEFT VENTRICLE: The cavity size was normal. Wall thickness was normal. Systolic function was normal. The estimated ejection fraction was in the range of 50% to 55%. Wall motion was normal; there were no regional wall motion abnormalities. AORTIC VALVE: Trileaflet; mildly thickened, mildly calcified leaflets. Cusp separation was normal. No evidence of vegetation. Doppler: No significant regurgitation. Aorta: - There was no atheroma. There was no evidence for dissection. Aortic root: The aortic root was not dilated. Ascending aorta: The ascending aorta was normal in size. Aortic arch: The aortic arch was normal in size. Descending aorta: The descending aorta was normal in size. MITRAL VALVE: Structurally normal valve. Leaflet separation was normal. No evidence of vegetation. Doppler: Trace regurgitation. LEFT ATRIUM: The atrium was normal in size. No evidence of thrombus in the atrial cavity or appendage. No evidence of thrombus in the atrial cavity or appendage. The appendage was morphologically a left appendage, multilobulated, and of normal size. Emptying velocity was normal. ATRIAL SEPTUM: No defect or patent foramen ovale was identified. Echo contrast study showed no [id number]-eu-rxcy atrial level shunt, at baseline or with provocation. RIGHT VENTRICLE: The cavity size was normal. Wall thickness was normal. Systolic function was normal. PULMONIC VALVE: Structurally normal valve. No evidence of vegetation. TRICUSPID VALVE: Structurally normal valve. Leaflet separation was normal. No evidence of vegetation. Doppler: Trace regurgitation. PULMONARY ARTERY: The main pulmonary artery was normal-sized. RIGHT ATRIUM: The atrium was normal in size. No evidence of thrombus in the atrial cavity or appendage. The appendage was morphologically a right appendage. PERICARDIUM: There was no pericardial effusion. Prepared and signed by Radha Bustamante [id number]
--- NOTE | 2017-04-19 11:19 | PD.CARD ---
Atrial Fibrillation Ablation PROCEDURE DATE: Feb 22, 2017 PROCEDURES PERFORMED: 1. Electrophysiology study on Isuprel infusion 2. CS cannulation 3. 3-D mapping 4. Transseptal approach 5. Right and left heart catheterization 6. Intracardiac echo 7. Radiofrequency ablation of atrial fibrillation 8. Pulmonary vein isolation 9. Posterior wall ablation 10. Mitral line creation 11. Anterior wall ablation INDICATIONS FOR THE PROCEDURE Mr. Woody is a 72-year-old male with atrial fibrillation, symptomatic, on anticoagulation referred for electrophysiology study and ablation. The patient is symptomatic and on anticoagulation. The risks, the nature and the benefits of the procedure were clearly stated to him. The risks include pneumothorax, cardiac perforation, stroke, need for open heart surgery and even . The patient understood and agreed to proceed. DESCRIPTION OF THE PROCEDURE IN DETAIL As written informed consent was obtained prior to esophageal echocardiogram, the patient was kept on the table where he was prepped and draped in the usual sterile fashion. Conscious sedation was initiated and maintained throughout the procedure by the anesthesiologist. Once sedation was verified, the right and left inguinal areas were anesthetized with 2% Xylocaine. Using modified Seldinger technique, the left femoral vein was cannulated on three occasions, three guidewires were advanced. Over the wire a 6, 7 and a 10-[place] Hemaquet were advanced. Then the left femoral artery was cannulated on one occasion, one guidewire was advanced. Over the wire a 4-[place] Hemaquet was advanced. Then the right femoral vein was cannulated on one occasion, one guidewire was advanced. Over the wire a 8-[place] Hemaquet was advanced. Then under fluoroscopic guidance through the 6 and 7-[place] Hemaquet, two 5-[place] Dean curved quadripolar electrophysiology catheters were advanced and placed around the His as well as coronary sinus. Basic interval was measured. The patient was in atrial fibrillation. Through the 10-[place] Hemaquet, a Cordis Kennedy AcuNav intracardiac echo catheter was advanced and placed at the right atrium. Multiple view was obtained. There is pericardial effusion, pulmonary vein was seen, atrial septal was visualized. Then the 8-[place] Hemaquet in the right femoral vein was exchanged for Agilis transseptal sheath that was placed all the way to the superior vena cava. Through the sheath a [place] needle was advanced, then the sheath, the dilator and the needle were progressed until foci engaged. Once engaged, the needle was advanced. RF was delivered for 2 seconds. I was able to cross into the left atrium. Once the needle crossed, the dilator was advanced. Once the dilator crossed, the sheath was advanced. Once the sheath crossed, the dilator and the needle were removed. At this point I did flood the system and fluid movement was seen in the left atrium the indicates the sheath is in good position. The patient already received 10,000 units of heparin. The goal is to keep an ACT around 350 during ablation. Then through the sheath a [place] Reyes 20 pulse circumferential catheter was advanced. Using [employer]otta endocardial solution mapping system, a two-dimensional configuration of the left atrium was obtained. Points were taken at the left superior and inferior veins, right superior and inferior veins, mitral valve, and appendages. Then through the sheath a [employer]. Reyes TactiCath 65cm 3.5mm irrigated tipped mapping and radiofrequency ablation catheter was advanced. Esophageal probe was placed temperature monitoring during ablation. When it increased to 0.5 degrees Celsius above baseline, I moved to a different area of the atrium. First I did isolate the left superior and inferior vein. I did make a chip[place]wa-cree around the veins. Posterior was ablated. A mitral line was created. Then the right superior and inferior veins were isolated. I did remap the atrium. There is no significant signal in the atrium. . At that point I did advance the circumferential catheter again into the vein. There was no signal into the vein, pacing from the vein showed no conduction to the atrium. Isuprel infusion was initiated at 20 mcg for 10-15 minutes. No tachyarrhythmia was induced, post Isuprel no tachyarrhythmia was induced. At that point the procedure was complete. All catheters were removed, atrial septal sheath was exchanged for 9-[place] Hemaquet, intracardiac echo showed no pericardial effusion. There is still good flow in the pulmonary vein. The patient is going to be transferred to the recovery room. No incident report. The patient tolerated the procedure. Blood loss was minimal. FINDINGS 1. Electrocardiogram: At baseline the patient was in sinus rhythm, post procedure the patient was in sinus rhythm. 2. Basic interval: Base cycle length was around 900. AH at 100 and HV at 54 milliseconds. 3. Tachyarrhythmia: Atrial fibrillation was mapped and ablated. Atrial tachycardia was ablated. The ablation was successful. CONCLUSION Successful electrophysiology study, mapping, radiofrequency ablation of atrial fibrillation, pulmonary vein isolation, posterior ablation, mitral line creation, anterior wall ablation, repeat electrophysiology on isuprel infusion. COMMENTS AND RECOMMENDATIONS The patient is going to be transferred to the telemetry unit. Will be observed and when stable can be discharged home. Radha Bustamante MD Apr 19, 2017 11:19
== END 2017-02-23 11:47 | disposition home or self-care (01) ==
LOC: HDOC 13:26 → HDIC 13:26 → HSDI 16:22 → HCIN 21:30 → HDOC 02-23 11:47
PROVIDERS: ATTEND Internal Medicine Interventional Cardiology
DX: I48.2 Chronic atrial fibrillation (principal); I45.10 Unspecified right bundle-branch block; R94.31 Abnormal electrocardiogram [ECG] [EKG]; R00.1 Bradycardia, unspecified
CPT/HCPCS: 80048; 85002; 85025; 85610; 85730; 93005; 93312; 93320; 93325; 93613; 93623; 93656; 93662; C1730; C1731; C1732; C1759; C1766; C2630; J1644; J1940; J1956; J2720; J3010